=== PATIENT | male | born 1990 | race Caucasian/White ===

== ENCOUNTER 2017-07-19 23:31 | Emergency (ER) | payer SELFPAY ==
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
[2017-07-20 02:09] VITALS: BP 124/62
== END 2017-07-20 02:09 | disposition home or self-care (01) ==
DX: F10.121 Alcohol abuse with intoxication delirium (principal); S80.211A Abrasion, right knee, initial encounter; S80.212A Abrasion, left knee, initial encounter; V47.5XXA Car driver injured in collision with fixed or stationary object in traffic accident, initial encounter; Y92.410 Unspecified street and highway as the place of occurrence of the external cause; Y99.8 Other external cause status; Y93.89 Activity, other specified